=== PATIENT | male | born 1970 | race Caucasian/White ===

== ENCOUNTER 2024-01-31 22:25 | Observation (INO) | payer BC ==
[~2024-01-31] VITALS: Ht 182.9 cm; Wt 96.4 kg
[2024-01-31] MEDS ORDERED: THERTAB52 PO (22:45)
[2024-01-31] MEDS ORDERED: ISOVUE-370 76% 100ML VIAL As Ordered ONE (22:49)
[2024-01-31 23:26] LABS: ETHYL ALCOHOL (ETHANOL) < 0.003 % (0.000-0.010)
[2024-01-31 23:27] LABS: BASO % 0.5 % (0.0-1.0); EOS # 0.1 10^3/uL (0.0-0.5); EOS % 1.7 % (0.0-3.0); HEMATOCRIT 42.1 % (42.0-52.0); HEMOGLOBIN 14.3 g/dl (13.5-17.5); LYMPH # 2.4 10^3/uL (1.5-5.0); LYMPH % 40.7 % (24.0-44.0); MEAN CORPUSCULAR HEMOGLOBIN 31.7 pg (27.0-33.0); MEAN CORPUSCULAR VOLUME 93.3 fl (80.0-96.0); MONO # 0.6 10^3/uL (0.0-0.8); MONO % 9.7 % (2.0-8.0); NEUTROPHILS # 2.8 10^3/uL (1.5-8.5); NEUTROPHILS % 46.9 % (36.0-66.0); PLATELET COUNT, AUTOMATED 227 10^3/uL (150-450); RED BLOOD COUNT 4.51 10^6/uL (4.30-6.10)
[2024-01-31 23:31] LABS: BLOOD UREA NITROGEN 16 MG/DL (9-23); CALCIUM LEVEL 8.5 MG/DL (8.5-10.1); CARBON DIOXIDE LEVEL 29 MMOL/L (20-31); CHLORIDE LEVEL 105 MMOL/L (98-107); CREATININE FOR GFR 1.04 MG/DL (0.70-1.30); GLOMERULAR FILTRATION RATE > 60.0 (>56); GLUCOSE, FASTING 95 MG/DL (60-100); POTASSIUM SERUM 4.3 MMOL/L (3.5-5.1); SODIUM LEVEL 139 MMOL/L (136-145)
[2024-01-31 23:39] LABS: INR 0.87; PARTIAL THROMBOPLASTIN TIME 22.6 SECONDS (24.8-34.2); PROTHROMBIN TIME 11.6 SECONDS (12.5-14.5)
[2024-02-01] VITALS (16 sets, daily range): BP systolic 117–135; BP diastolic 66–79; TEMP 97.1–97.5; O2SAT 95–97
[2024-02-01] MEDS ORDERED: HOME MED LIST COMPLETE! XX SCH (00:15)
[2024-02-01 00:53] LABS: AMPHETAMINES LEVEL URINE NEGATIVE (NEGATIVE); BARBITURATES URINE NEGATIVE (NEGATIVE); BENZODIAZEPINES URINE NEGATIVE (NEGATIVE); COCAINE METABOLITE URINE NEGATIVE (NEGATIVE); METHADONE URINE NEGATIVE (NEGATIVE); OPIATES URINE NEGATIVE (NEGATIVE); PHENCYCLIDINE URINE NEGATIVE (NEGATIVE)
[2024-02-01 00:57] LABS: CANNABINOIDS URINE POSITIVE (NEGATIVE)
[2024-02-01] MEDS: ASPIRIN 81MG CHEW TABLET PO ONE (01:04)
[2024-02-01] MEDS ORDERED: ACETAMINOPHEN TAB 650MG DOSE (2X325MG) PO PRN (01:30)
[2024-02-01] MEDS ORDERED: MOM 30ML SUSPENSION UDC PO PRN (01:30)
[2024-02-01] MEDS ORDERED: MAALOX 30 ML SUSP *UDC PO PRN (01:30)
[2024-02-01 02:02] LABS: C REACTIVE PROTEIN QUANTITATIV < 0.40 MG/DL (<1.0)
[2024-02-01] MEDS ORDERED: LORazepam 2 MG TAB PO PRN (02:05)
[2024-02-01 02:19] LABS: ALBUMIN 3.1 G/DL (3.2-5.2); ALKALINE PHOSPHATASE 75 U/L (46-116); ALT/SGPT 58 U/L (7.0-40); AST/SGOT 47 U/L (<34); BILIRUBIN,DIRECT < 0.1 MG/DL (<0.4); BILIRUBIN,TOTAL 0.2 MG/DL (0.3-1.2); CHOLESTEROL LEVEL 237 MG/DL (<200); CHOLESTEROL RISK RATIO 5.49 (<5); CK-MB VALUE MASS < 1.0 NG/ML (<3.6); CPK CREATINE PHOSPHOKINASE 150 U/L (46-171); HDL CHOLESTEROL 43.1 MG/DL (>40); MAGNESIUM LEVEL 2.1 MG/DL (1.8-2.4); MB/CK RELATIVE INDEX 0.66 (< OR =4); NON-HDL-C 193.9 MG/DL; RHEUMATOID FACTOR QUANT < 3.5 IU/ML (<14); TOTAL PROTEIN 6.6 G/DL (5.7-8.2); TRIGLYCERIDES LEVEL 767 MG/DL (<150)
[2024-02-01 02:22] LABS: ERYTHROCYTE SEDIMENTATION RATE 18 mm/hr (0-20)
[2024-02-01] MEDS: ATORVASTATIN 20 MG TAB PO SCH (06:51)
[2024-02-01] MEDS: HEPARIN SOD (PORCINE) 5000UNITS/ML 1ML VIAL/SYRINGE SQ SCH (06:52)
[2024-02-01] MEDS: LACTULOSE 20GM/30ML SYRUP UDC PO SCH (08:51)
[2024-02-01] MEDS: MULTIVITAMINS/MINERALS THERAP 1 TAB PO SCH (08:52)
[2024-02-01] MEDS: FOLIC ACID 1MG TAB PO SCH (08:52)
[2024-02-01] MEDS: THIAMINE 100 MG TAB PO SCH (08:52)
[2024-02-01] MEDS: DOCUSATE SODIUM 100MG CAPSULE PO SCH (08:52)
[2024-02-01] MEDS ORDERED: ASPIRIN 81MG CHEW TABLET PO SCH (09:00)
[2024-02-01 09:10] LABS: HEMATOCRIT 37.1 % (42.0-52.0); HEMOGLOBIN 12.5 g/dl (13.5-17.5); MEAN CORPUSCULAR HEMOGLOBIN 31.3 pg (27.0-33.0); MEAN CORPUSCULAR HGB CONC 33.7 g/dl (32.0-36.5); MEAN CORPUSCULAR VOLUME 92.8 fl (80.0-96.0); PLATELET COUNT, AUTOMATED 187 10^3/uL (150-450); WHITE BLOOD COUNT 4.8 10^3/uL (4.0-10.0)
[2024-02-01 09:30] LABS: ALBUMIN 2.7 G/DL (3.2-5.2); ALKALINE PHOSPHATASE 70 U/L (46-116); ALT/SGPT 58 U/L (7.0-40); AST/SGOT 36 U/L (<34); BILIRUBIN,TOTAL 0.3 MG/DL (0.3-1.2); BLOOD UREA NITROGEN 17 MG/DL (9-23); CALCIUM LEVEL 8.4 MG/DL (8.5-10.1); CARBON DIOXIDE LEVEL 28 MMOL/L (20-31); CHLORIDE LEVEL 107 MMOL/L (98-107); CREATININE FOR GFR 0.92 MG/DL (0.70-1.30); GLOMERULAR FILTRATION RATE > 60.0 (>56); GLUCOSE, FASTING 90 MG/DL (60-100); POTASSIUM SERUM 4.2 MMOL/L (3.5-5.1); SODIUM LEVEL 140 MMOL/L (136-145)
[2024-02-01 11:11] LABS: THYROID STIMULATING HORMONE 2.256 uIU/ML (0.55-4.78); VITAMIN B12 LEVEL 649 PG/ML (211-911)
[2024-02-02 03:27] VITALS: BP 121/72; TEMP 97.6; O2SAT 97
[2024-02-02 04:00] VITALS: BP 121/72; TEMP 97.6; O2SAT 97
[2024-02-02 06:16] LABS: HEMATOCRIT 38.4 % (42.0-52.0); MEAN CORPUSCULAR HEMOGLOBIN 31.3 pg (27.0-33.0); MEAN CORPUSCULAR HGB CONC 33.9 g/dl (32.0-36.5); MEAN CORPUSCULAR VOLUME 92.3 fl (80.0-96.0); PLATELET COUNT, AUTOMATED 188 10^3/uL (150-450); RED BLOOD COUNT 4.16 10^6/uL (4.30-6.10); WHITE BLOOD COUNT 5.3 10^3/uL (4.0-10.0)
[2024-02-02 06:48] LABS: ALBUMIN 2.6 G/DL (3.2-5.2); ALKALINE PHOSPHATASE 85 U/L (46-116); ALT/SGPT 87 U/L (7.0-40); AST/SGOT 65 U/L (<34); BILIRUBIN,TOTAL 0.5 MG/DL (0.3-1.2); BLOOD UREA NITROGEN 12 MG/DL (9-23); CALCIUM LEVEL 8.4 MG/DL (8.5-10.1); CARBON DIOXIDE LEVEL 30 MMOL/L (20-31); CHLORIDE LEVEL 109 MMOL/L (98-107); CHOLESTEROL LEVEL 189 MG/DL (<200); CHOLESTEROL RISK RATIO 5.46 (<5); CREATININE FOR GFR 0.92 MG/DL (0.70-1.30); GLOMERULAR FILTRATION RATE > 60.0 (>56); GLUCOSE, FASTING 112 MG/DL (60-100); HDL CHOLESTEROL 34.6 MG/DL (>40); MAGNESIUM LEVEL 2.1 MG/DL (1.8-2.4); NON-HDL-C 154.4 MG/DL; POTASSIUM SERUM 4.3 MMOL/L (3.5-5.1); SODIUM LEVEL 142 MMOL/L (136-145); TOTAL PROTEIN 5.7 G/DL (5.7-8.2); TRIGLYCERIDES LEVEL 257 MG/DL (<150)
[2024-02-02 07:56] VITALS: BP 137/72; TEMP 97.1; O2SAT 95
[2024-02-02] MEDS: ASPIRIN 81MG ENTERIC TABLET PO SCH (08:03)
[2024-02-02] MEDS ORDERED: THERTAB52 PO (11:01)
[2024-02-02] MEDS ORDERED: ASPI81TAEC PO (11:01)
[2024-02-02] MEDS ORDERED: THIA100TA PO (11:01)
[2024-02-02] MEDS ORDERED: ATOR1TAB21 PO (11:01)
[2024-02-02] MEDS ORDERED: FOLI1TAB11 PO (11:01)
[2024-02-02] MEDS ORDERED: MULT-90 PO (11:06)
[2024-02-02 11:17] LABS: ANA SCREEN, IFA NEGATIVE (NEGATIVE)
[2024-02-02 15:33] LABS: SSA SJOGRENS A <1.0 NEG AI (<1.0 NEG); SSB SJOGRENS B <1.0 NEG AI (<1.0 NEG)
[2024-02-03 00:06] LABS: CARDIOLIPIN IGA ANTIBODY < 2.0 APL-U/mL (<20.0); CARDIOLIPIN IGG ANTIBODY < 2.0 GPL-U/mL (<20.0); CARDIOLIPIN IGM ANTIBODY < 2.0 MPL-U/mL (<20.0)
[2024-02-03 15:58] LABS: ANCA SCREEN Negative (Negative)
[2024-02-04 09:52] LABS: DRVV SCREEN 33.8 SECONDS
[2024-02-04 10:23] LABS: PTT LUPUS TYPE ANTICOAG SCREEN 0.85 (0-1.20)
[2024-02-04 15:15] LABS: PROTEIN S ANTIGEN FREE 102 % normal (57-171); PROTEIN S ANTIGEN TOTAL 124 % normal (70-140)
[2024-02-04 17:13] LABS: FACTOR V111 ACTIVITY, CLOTTING 78 % normal (50-180); FACTOR VIII APTT 29 sec (23-32); RISTOCETIN COFACTOR 86 % normal (42-200); VW FACTOR ANTIGEN 125 % (50-217)
[2024-02-05 00:52] LABS: ANTI THROMBIN 3 ANTIGEN IMMUNO 93 % normal (80-120); ANTI THROMBIN 3 FUNCT ACTIVITY 111 % normal (80-135)
== END 2024-02-02 13:24 | disposition home or self-care (01) ==
LOC: M ED 22:25 → INTOOBSV 02-01 01:28 → M ED INP 02-01 01:28 → M PCU 02-01 04:17
PROVIDERS: ADMIT Family Medicine; ATTEND Family Medicine
DX: G93.41 Metabolic encephalopathy (principal); E78.5 Hyperlipidemia, unspecified; K76.0 Fatty (change of) liver, not elsewhere classified; R74.01 Elevation of levels of liver transaminase levels; R26.89 Other abnormalities of gait and mobility; R60.0 Localized edema; F10.10 Alcohol abuse, uncomplicated; Z79.82 Long term (current) use of aspirin; Z79.899 Other long term (current) drug therapy
CPT/HCPCS: 36415; 70450; 70496; 70498; 70551; 71045; 76705; 80047; 80048; 80053; 80061; 80076; 80307; 81240; 82077; 82140; 82550; 82553; 82607; 83036; 83090; 83735; 83880; 84443; 84484; 85025; 85027; 85240; 85245; 85246; 85300; 85301; 85302; 85305; 85306; 85610; 85652; 85730; 86036; 86038; 86140; 86147; 86235; 86431; 86618; 86850; 86900; 86901; 93005; 93041; 93306; 93971; 94760; 96372; 97161; 97165; 99285; Q9967